=== PATIENT | male | born 1985 | race Caucasian/White ===

== ENCOUNTER 2025-01-22 10:05 | Inpatient (IN) | payer MEDICAID, OTHER ==
[~2025-01-22] VITALS: Ht 325.1 cm; Wt 68.7 kg
[2025-01-22 10:12] VITALS: O2SAT 98
[2025-01-22] MEDS ORDERED: ONDANSETRON HCL 4MG/2ML INJ IV ONE (11:00)
[2025-01-22] MEDS ORDERED: DIAZEPAM 5 MG/ML 2ML SYR IV ONE (11:00)
[2025-01-22] MEDS ORDERED: ACETAMINOPHEN 325MG TABLET PO ONE (11:00)
[2025-01-22] MEDS ORDERED: KETOROLAC 15MG/ML VIAL IV ONE (11:15)
[2025-01-22 11:16] LABS: BASOPHILS % 0.5 % (0.0-2.0); EOSINOPHILS % 2.2 % (0.0-5.0); HEMATOCRIT. 44.2 % (42.0-52.0); HEMOGLOBIN. 14.5 g/dL (14.0-18.0); LYMPHOCYTES % 22.4 % (20.0-50.0); MEAN PLATELET VOLUME 8.7 fl (7.4-10.4); MONOCYTES % 6.6 % (2.0-8.0); NEUTROPHILS % 68.3 % (40.0-76.0); PLATELET 298 x1000/uL (130-400); RED BLOOD CELL COUNT 4.71 mill/uL (4.7-6.1); RED CELL DISTRIBUTION WIDTH 14.5 % (11.6-14.6)
[2025-01-22] MEDS: LACTATED RINGERS 1,000 ML IV SCH (11:30)
[2025-01-22 11:37] LABS: CREATININE 0.9 mg/dL (0.6-1.3)
[2025-01-22 11:38] LABS: UREA NITROGEN BLOOD 6 mg/dL (9-23)
[2025-01-22 11:39] LABS: ASPARTATE AMINOTRANSFERASE 54 IU/L (<34)
[2025-01-22 11:40] LABS: BILIRUBIN DIRECT 0.2 mg/dL (<=3.0); BILIRUBIN TOTAL 0.6 mg/dL (0.1-1.0); PROTEIN TOTAL 7.7 g/dL (6.0-8.3)
[2025-01-22] MEDS: DIAZEPAM 5 MG/ML 2ML SYR IV NR (11:45)
[2025-01-22] MEDS: ONDANSETRON HCL 4MG/2ML INJ IV NR (11:45)
[2025-01-22] MEDS: KETOROLAC 15MG/ML VIAL IV NR (11:45)
[2025-01-22] MEDS ORDERED: IOHEXOL-300 100 ML BOTTLE ONE (12:56)
[2025-01-22] MEDS ORDERED: PIPERACILLIN/TAZO 3.375G/50ML 50 ML IV ONE ×3 (14:16→20:40)
[2025-01-22] MEDS: PIPERACILLIN/TAZO 3.375G/50ML 50 ML IV STA (14:18)
[2025-01-22] MEDS ORDERED: MAGNESIUM/ALUMINUM HYDROXIDE/SIMETHICONE 30ML UDC PO PRN (15:30)
[2025-01-22] MEDS ORDERED: CLONIDINE 0.1MG TABLET PO PRN (15:30)
[2025-01-22] MEDS ORDERED: ONDANSETRON HCL 4MG/2ML INJ IV PRN (15:30)
[2025-01-22] MEDS ORDERED: ACETAMINOPHEN 325MG TABLET PO PRN (15:30)
[2025-01-22] MEDS ORDERED: OLAN5TAB74 PO (15:52)
[2025-01-22] MEDS ORDERED: THIA100T88 PO (15:52)
[2025-01-22] MEDS ORDERED: BUSP15TA3 PO (15:52)
[2025-01-22] MEDS ORDERED: ONDA4TAB50 PO (15:52)
[2025-01-22] MEDS ORDERED: ARIP10TA86 PO (15:52)
[2025-01-22] MEDS ORDERED: PANT40TA51 PO (15:52)
[2025-01-22] MEDS ORDERED: GABA-534 PO (15:52)
[2025-01-22] MEDS ORDERED: HYDR-4001 PO (15:52)
[2025-01-22] MEDS ORDERED: NALT50TA6 PO (15:52)
[2025-01-22] MEDS ORDERED: HYDR-3992 PO (15:52)
[2025-01-22] MEDS ORDERED: ESCI-7 PO (15:52)
[2025-01-22 16:00] VITALS: BP 108/68; PULSE 64; RESP 17; TEMP 36.4; O2SAT 98
[2025-01-22] MEDS ORDERED: NALOXONE HCL 0.4MG/ML VIAL IV PRN (16:00)
[2025-01-22] MEDS: SODIUM CHLORIDE 0.9% 1,000 ML IV SCH (17:41)
[2025-01-22] MEDS: LORAZEPAM 2MG/ML UD SYRINGE IV PRN (18:25)
[2025-01-22 18:29] VITALS: BP 120/75; PULSE 77; RESP 18; TEMP 36.418
[2025-01-22 20:00] VITALS: BP 109/65; PULSE 61; RESP 16; TEMP 36.6
[2025-01-22] MEDS: ENOXAPARIN 40MG/0.4ML SYR SUBCUT SCH (20:49)
[2025-01-22] MEDS: ZOLPIDEM TARTRATE 5MG TABLET PO PRN (21:33)
[2025-01-22] MEDS: PIPERACILLIN/TAZO 3.375G/50ML 50 ML IV SCH (22:12)
[2025-01-23] VITALS: BP 110/66; PULSE 63; RESP 17; TEMP 36.4; O2SAT 99
[2025-01-23 04:00] VITALS: BP 104/65; PULSE 60; RESP 16; TEMP 36.6; O2SAT 99
[2025-01-23 08:00] VITALS: BP 109/63; PULSE 61; RESP 18; TEMP 36.7; O2SAT 98
[2025-01-23 08:55] LABS: BASOPHILS % 0.8 % (0.0-2.0); EOSINOPHILS % 4.9 % (0.0-5.0); HEMATOCRIT. 40.3 % (42.0-52.0); HEMOGLOBIN. 13.2 g/dL (14.0-18.0); LYMPHOCYTES % 32.2 % (20.0-50.0); MEAN PLATELET VOLUME 9.2 fl (7.4-10.4); MONOCYTES % 6.8 % (2.0-8.0); NEUTROPHILS % 55.3 % (40.0-76.0); PLATELET 235 x1000/uL (130-400); RED BLOOD CELL COUNT 4.26 mill/uL (4.7-6.1); RED CELL DISTRIBUTION WIDTH 14.2 % (11.6-14.6)
[2025-01-23] MEDS: PANTOPRAZOLE SODIUM 40 MG/VIAL IV SCH (09:17)
[2025-01-23 09:19] LABS: CREATININE 0.8 mg/dL (0.6-1.3); UREA NITROGEN BLOOD < 5 mg/dL (9-23)
[2025-01-23 12:00] VITALS: BP 102/63; PULSE 63; RESP 18; TEMP 36.7
[2025-01-23] MEDS ORDERED: NON FORMULARY MED XX SCH (16:45)
[2025-01-23] MEDS: ARIPIPRAZOLE 5MG TABLET PO SCH (17:10)
[2025-01-23] MEDS: CITALOPRAM HYDROBROMIDE 10MG TABLET PO SCH (17:10)
[2025-01-23 18:25] VITALS: BP 106/59; PULSE 69; RESP 18; TEMP 36.6; O2SAT 98
[2025-01-23 20:00] VITALS: BP 107/62; PULSE 69; RESP 20; TEMP 36.6; O2SAT 97
[2025-01-23] MEDS: BUSPIRONE HCL 10MG TABLET PO SCH (20:16)
[2025-01-24] VITALS: BP 138/63; PULSE 79; RESP 18; TEMP 36.6; O2SAT 97
[2025-01-24] MEDS: HYDROCODONE/ACETAMINOPHEN 5/325MG TABLET PO PRN (03:42)
[2025-01-24] MEDS: OLANZAPINE 5MG TABLET PO SCH (03:42)
[2025-01-24 04:00] VITALS: BP 102/51; PULSE 55; RESP 20; TEMP 36.4; O2SAT 96
[2025-01-24 05:20] VITALS: PULSE 65; RESP 19; O2SAT 97
[2025-01-24 07:20] LABS: BASOPHILS % 0.9 % (0.0-2.0); EOSINOPHILS % 4.6 % (0.0-5.0); HEMATOCRIT. 38.9 % (42.0-52.0); HEMOGLOBIN. 12.8 g/dL (14.0-18.0); LYMPHOCYTES % 31.8 % (20.0-50.0); MEAN PLATELET VOLUME 9.1 fl (7.4-10.4); MONOCYTES % 7.5 % (2.0-8.0); NEUTROPHILS % 55.2 % (40.0-76.0); PLATELET 218 x1000/uL (130-400); RED BLOOD CELL COUNT 4.13 mill/uL (4.7-6.1); RED CELL DISTRIBUTION WIDTH 14.3 % (11.6-14.6)
[2025-01-24 07:36] LABS: CREATININE 0.8 mg/dL (0.6-1.3); UREA NITROGEN BLOOD 6 mg/dL (9-23)
[2025-01-24 08:00] VITALS: BP 105/57; PULSE 63; RESP 18; TEMP 36.5; O2SAT 97
[2025-01-24] MEDS ORDERED: CITALOPRAM HYDROBROMIDE 10MG TABLET PO SCH (09:00)
[2025-01-24] MEDS ORDERED: BUSPIRONE HCL 10MG TABLET PO SCH (09:00)
[2025-01-24] MEDS ORDERED: ARIPIPRAZOLE 5MG TABLET PO SCH (09:00)
[2025-01-24] MEDS: THIAMINE HCL 100MG TABLET PO SCH (09:16)
[2025-01-24] MEDS: METHIMAZOLE 5MG TABLET PO SCH (09:16)
[2025-01-24] MEDS: GABAPENTIN 400MG CAPSULE PO SCH (09:17)
[2025-01-24] MEDS ORDERED: LORA-249 MT (09:39)
[2025-01-24 12:00] VITALS: BP 110/71; PULSE 90; RESP 18; TEMP 36.6; O2SAT 98
[2025-01-24] MEDS ORDERED: BUSP10TA4 PO (14:16)
[2025-01-24] MEDS ORDERED: ABIL5 PO (14:16)
[2025-01-24] MEDS ORDERED: OLAN5TAB74 MT (14:16)
[2025-01-24] MEDS ORDERED: CITA10TA16 PO (14:16)
[2025-01-24] MEDS ORDERED: METH-371 PO (14:16)
[2025-01-24 14:27] VITALS: BP 110/71; PULSE 90; RESP 18; TEMP 97.7
== END 2025-01-24 14:50 | disposition home or self-care (01) | DRG 776 ==
LOC: ER 10:05 → 8WST 12:51 → ENRESERV 13:14
PROVIDERS: ADMIT Internal Medicine; ATTEND Internal Medicine
DX: F13.939 Sedative, hypnotic or anxiolytic use, unspecified with withdrawal, unspecified (principal); F31.9 Bipolar disorder, unspecified; F41.9 Anxiety disorder, unspecified; K76.9 Liver disease, unspecified; Z90.49 Acquired absence of other specified parts of digestive tract; R94.6 Abnormal results of thyroid function studies
CPT/HCPCS: 36415; 74177; 80048; 80076; 84443; 85025; 93970; 96361; 96374; 96375; 99291; J1650; J2060; J2470; J2543; J7030; Q9967

== ENCOUNTER 2025-03-06 16:59 | Emergency (ER) | payer MEDICAID ==
[~2025-03-06] VITALS: Ht 175.3 cm; Wt 72.0 kg
[~2025-03-06 16:59] MED LIST: ABIL5 PO; ARIP10TA86 PO; BUSP10TA4 PO; BUSP15TA3 PO; CITA10TA16 PO; ESCI-7 PO; GABA-534 PO; HYDR-3992 PO; LORA-249 MT; METH-371 PO; NALT50TA6 PO; OLAN5TAB74 MT; OLAN5TAB74 PO; PANT40TA51 PO; THIA100T88 PO
[2025-03-06 17:02] VITALS: O2SAT 98
[2025-03-06] MEDS: LORAZEPAM 1MG TABLET PO ONE (17:23)
[2025-03-06 18:20] LABS: *AMPHETAMINES SCREEN URINE NEGATIVE (NEGATIVE)
[2025-03-06 18:21] LABS: *BARBITURATES SCREEN URINE NEGATIVE (NEGATIVE); *BENZODIAZEPINES SCREEN URINE NEGATIVE (NEGATIVE); *COCAINE SCREEN URINE NEGATIVE (NEGATIVE); CANNABINOID URINE SCREEN PRESUMPTIVE POSITIVE (NEGATIVE); ECSTASY MDMA SCREEN URINE NEGATIVE (NEGATIVE); METHADONE URINE SCREEN NEGATIVE (NEGATIVE); OPIATES URINE SCREEN NEGATIVE (NEGATIVE); PHENCYCLIDINE URINE SCREEN NEGATIVE (NEGATIVE)
[2025-03-06 21:14] LABS: BASOPHILS % 0.8 % (0.0-2.0); EOSINOPHILS % 5.2 % (0.0-5.0); HEMATOCRIT. 42.3 % (42.0-52.0); HEMOGLOBIN. 13.9 g/dL (14.0-18.0); LYMPHOCYTES % 55.5 % (20.0-50.0); MEAN PLATELET VOLUME 8.5 fl (7.4-10.4); MONOCYTES % 5.7 % (2.0-8.0); NEUTROPHILS % 32.8 % (40.0-76.0); PLATELET 182 x1000/uL (130-400); RED BLOOD CELL COUNT 4.64 mill/uL (4.7-6.1); RED CELL DISTRIBUTION WIDTH 15.0 % (11.6-14.6)
[2025-03-06 21:29] LABS: UREA NITROGEN BLOOD 7 mg/dL (9-23)
[2025-03-06 21:30] LABS: CREATININE 0.9 mg/dL (0.6-1.3)
[2025-03-06 21:32] LABS: ASPARTATE AMINOTRANSFERASE 34 IU/L (<34); BILIRUBIN DIRECT 0.1 mg/dL (<=3.0)
[2025-03-06 21:33] LABS: BILIRUBIN TOTAL 0.3 mg/dL (0.1-1.0); PROTEIN TOTAL 6.3 g/dL (6.0-8.3)
[2025-03-07 12:00] VITALS: BP 136/82; PULSE 81; RESP 16; TEMP 36.7; O2SAT 97
[2025-03-29] MEDS ORDERED: FOLI-43 PO (10:16)
[2025-03-29] MEDS ORDERED: CHLO25CA11 MT (10:16)
[2025-03-29] MEDS ORDERED: THIA100T88 PO (10:16)
[2025-03-29] MEDS ORDERED: MULT-379 MT (10:16)
[2025-03-29] MEDS ORDERED: LORA-249 MT (10:16)
== END 2025-03-07 12:05 ==
LOC: ER 16:59
DX: R45.851 Suicidal ideations (principal); F15.90 Other stimulant use, unspecified, uncomplicated; F10.229 Alcohol dependence with intoxication, unspecified; F12.10 Cannabis abuse, uncomplicated; F25.9 Schizoaffective disorder, unspecified; F31.9 Bipolar disorder, unspecified; F41.9 Anxiety disorder, unspecified; Z79.899 Other long term (current) drug therapy; Z91.148 Patient's other noncompliance with medication regimen for other reason; Z20.822 Contact with and (suspected) exposure to COVID-19; Y90.8 Blood alcohol level of 240 mg/100 ml or more
CPT/HCPCS: 36415; 80048; 80076; 80305; 80307; 80320; 80329; 83735; 85025; 87426; 99285; G0480

== ENCOUNTER 2025-04-16 19:21 | Emergency (ER) | payer MEDICAID ==
[~2025-04-16] VITALS: Ht 182.9 cm; Wt 75.0 kg
[~2025-04-16 19:21] MED LIST changes: -ARIP10TA86 PO; -BUSP10TA4 PO; +CHLO25CA11 MT; -ESCI-7 PO; +FOLI-43 PO; +MULT-379 MT; -OLAN5TAB74 PO
[2025-04-16 19:35] VITALS: TEMP 98.6; O2SAT 98
[2025-04-16 20:47] LABS: BASOPHILS % 0.9 % (0.0-2.0); EOSINOPHILS % 5.5 % (0.0-5.0); HEMATOCRIT. 41.7 % (42.0-52.0); HEMOGLOBIN. 13.9 g/dL (14.0-18.0); LYMPHOCYTES % 33.9 % (20.0-50.0); MEAN PLATELET VOLUME 8.0 fl (7.4-10.4); MONOCYTES % 7.1 % (2.0-8.0); NEUTROPHILS % 52.6 % (40.0-76.0); PLATELET 145 x1000/uL (130-400); RED BLOOD CELL COUNT 4.59 mill/uL (4.7-6.1); RED CELL DISTRIBUTION WIDTH 15.0 % (11.6-14.6)
[2025-04-16 21:02] LABS: CREATININE 0.8 mg/dL (0.6-1.3); UREA NITROGEN BLOOD 7 mg/dL (9-23)
[2025-04-16] MEDS: SODIUM CHLORIDE 0.9% 1,000 ML IV ONE (21:04)
[2025-04-16 21:16] LABS: ETHANOL BLOOD 363 mg/dL (<10)
[2025-04-17 01:09] VITALS: BP 121/79; PULSE 98; RESP 18; O2SAT 100
== END 2025-04-17 01:11 | disposition home or self-care (01) ==
LOC: ER 19:21
DX: F10.129 Alcohol abuse with intoxication, unspecified (principal); Z79.899 Other long term (current) drug therapy; Y90.8 Blood alcohol level of 240 mg/100 ml or more
CPT/HCPCS: 80048; 80320; 85025; 36415; 96360; 99283; J7030; G0480

== ENCOUNTER 2025-04-17 02:10 | Emergency (ER) | payer MEDICAID ==
[~2025-04-17] VITALS: Ht 175.3 cm; Wt 77.0 kg
[2025-04-17 02:25] VITALS: TEMP 97.7; O2SAT 96
[2025-04-17 03:32] LABS: CLARITY URINE CLEAR (CLEAR); COLOR URINE YELLOW (YELLOW); GLUCOSE URINE NEGATIVE (NEGATIVE); KETONES URINE TRACE (NEGATIVE); LEUKOCYTE ESTERASE URINE NEGATIVE (NEGATIVE); NITRITE URINE NEGATIVE (NEGATIVE); OCCULT BLOOD URINE NEGATIVE (NEGATIVE); PH URINE 5.5 (4.5-8.0); PROTEIN URINE 1+ (NEGATIVE); SPECIFIC GRAVITY URINE 1.017 (1.005-1.030); UROBILINOGEN URINE 1.0 E.U./dL (0.2-1.0)
[2025-04-17 03:47] LABS: *AMPHETAMINES SCREEN URINE NEGATIVE (NEGATIVE); *BARBITURATES SCREEN URINE PRESUMPTIVE POSITIVE (NEGATIVE); *BENZODIAZEPINES SCREEN URINE NEGATIVE (NEGATIVE); *COCAINE SCREEN URINE PRESUMPTIVE POSITIVE (NEGATIVE); CANNABINOID URINE SCREEN NEGATIVE (NEGATIVE); ECSTASY MDMA SCREEN URINE NEGATIVE (NEGATIVE); METHADONE URINE SCREEN NEGATIVE (NEGATIVE); OPIATES URINE SCREEN NEGATIVE (NEGATIVE); PHENCYCLIDINE URINE SCREEN NEGATIVE (NEGATIVE)
[2025-04-17 04:04] LABS: BASOPHILS % 0.3 % (0.0-2.0); EOSINOPHILS % 4.0 % (0.0-5.0); HEMATOCRIT. 40.5 % (42.0-52.0); HEMOGLOBIN. 13.2 g/dL (14.0-18.0); LYMPHOCYTES % 20.2 % (20.0-50.0); MEAN PLATELET VOLUME 8.1 fl (7.4-10.4); MONOCYTES % 7.7 % (2.0-8.0); NEUTROPHILS % 67.8 % (40.0-76.0); PLATELET 132 x1000/uL (130-400); RED BLOOD CELL COUNT 4.42 mill/uL (4.7-6.1); RED CELL DISTRIBUTION WIDTH 15.3 % (11.6-14.6)
[2025-04-17 04:18] LABS: CREATININE 0.9 mg/dL (0.6-1.3)
[2025-04-17 04:19] LABS: ETHANOL BLOOD 166 mg/dL (<10); PROTEIN TOTAL 5.8 g/dL (6.0-8.3); UREA NITROGEN BLOOD 9 mg/dL (9-23)
[2025-04-17 04:20] LABS: ASPARTATE AMINOTRANSFERASE 33 IU/L (<34)
[2025-04-17 04:21] LABS: BILIRUBIN DIRECT 0.1 mg/dL (<=3.0); BILIRUBIN TOTAL 0.3 mg/dL (0.1-1.0)
[2025-04-17 05:27] LABS: RBC URINE 0-2 /hpf (0-2); SQUAMOUS EPITHELIAL CELL URINE FEW /lpf (RARE/1+); WBC URINE 0-2 /hpf (0-2)
[2025-04-17 05:30] LABS: BACTERIA URINE NONE SEEN
[2025-04-17] MEDS: LORAZEPAM 1MG TABLET PO ONE (09:30)
[2025-04-17] MEDS: ONDANSETRON 4MG ODT PO ONE (09:30)
[2025-04-17 12:12] VITALS: BP 123/82; PULSE 95; RESP 18; O2SAT 98
== END 2025-04-17 12:15 | disposition home or self-care (01) ==
LOC: ER 02:10
DX: R45.851 Suicidal ideations (principal); F31.9 Bipolar disorder, unspecified; F19.10 Other psychoactive substance abuse, uncomplicated; F41.9 Anxiety disorder, unspecified; Z79.899 Other long term (current) drug therapy; Z20.822 Contact with and (suspected) exposure to COVID-19
CPT/HCPCS: 80076; 80305; 80048; 81003; 80320; 83735; 85025; 36415; 93005; 99284; 87426; Q0162; G0480

== ENCOUNTER 2025-04-17 15:33 | Emergency (ER) | payer MEDICAID ==
[~2025-04-17] VITALS: Ht 170.2 cm; Wt 68.0 kg
[2025-04-17 15:35] VITALS: TEMP 98.3; O2SAT 99
[2025-04-17 17:13] LABS: BASOPHILS % 0.4 % (0.0-2.0); EOSINOPHILS % 1.6 % (0.0-5.0); HEMATOCRIT. 45.6 % (42.0-52.0); HEMOGLOBIN. 15.2 g/dL (14.0-18.0); LYMPHOCYTES % 25.0 % (20.0-50.0); MEAN PLATELET VOLUME 8.5 fl (7.4-10.4); MONOCYTES % 6.4 % (2.0-8.0); NEUTROPHILS % 66.6 % (40.0-76.0); PLATELET 123 x1000/uL (130-400); RED BLOOD CELL COUNT 4.99 mill/uL (4.7-6.1); RED CELL DISTRIBUTION WIDTH 14.9 % (11.6-14.6)
[2025-04-17 17:31] LABS: CREATININE 0.8 mg/dL (0.6-1.3); UREA NITROGEN BLOOD 7 mg/dL (9-23)
[2025-04-17 17:32] LABS: PROTEIN TOTAL 6.4 g/dL (6.0-8.3)
[2025-04-17 17:33] LABS: ASPARTATE AMINOTRANSFERASE 37 IU/L (<34)
[2025-04-17 17:34] LABS: BILIRUBIN DIRECT 0.1 mg/dL (<=3.0); BILIRUBIN TOTAL 0.3 mg/dL (0.1-1.0)
[2025-04-17 17:51] LABS: ETHANOL BLOOD 340 mg/dL (<10)
[2025-04-17 23:09] VITALS: BP 122/80; PULSE 104; RESP 18; O2SAT 96
== END 2025-04-17 23:11 | disposition home or self-care (01) ==
LOC: ER 15:33
DX: T51.0X1A Toxic effect of ethanol, accidental (unintentional), initial encounter (principal); F10.20 Alcohol dependence, uncomplicated; F31.9 Bipolar disorder, unspecified; F14.90 Cocaine use, unspecified, uncomplicated; F15.90 Other stimulant use, unspecified, uncomplicated; G92.9 Unspecified toxic encephalopathy; G31.2 Degeneration of nervous system due to alcohol; R51.9 Headache, unspecified; Z79.899 Other long term (current) drug therapy; Y90.8 Blood alcohol level of 240 mg/100 ml or more
CPT/HCPCS: 36415; 80048; 80076; 80320; 85025; 99284; G0480

== ENCOUNTER 2025-04-18 10:12 | Emergency (ER) | payer MEDICAID ==
[~2025-04-18] VITALS: Ht 175.3 cm; Wt 68.0 kg
[2025-04-18 10:15] VITALS: O2SAT 98
[2025-04-18 11:12] LABS: BASOPHILS % 0.3 % (0.0-2.0); EOSINOPHILS % 0.1 % (0.0-5.0); HEMATOCRIT. 41.0 % (42.0-52.0); HEMOGLOBIN. 13.9 g/dL (14.0-18.0); LYMPHOCYTES % 27.4 % (20.0-50.0); MEAN PLATELET VOLUME 7.5 fl (7.4-10.4); MONOCYTES % 6.3 % (2.0-8.0); NEUTROPHILS % 65.9 % (40.0-76.0); PLATELET 187 x1000/uL (130-400); RED BLOOD CELL COUNT 4.55 mill/uL (4.7-6.1); RED CELL DISTRIBUTION WIDTH 15.0 % (11.6-14.6)
[2025-04-18 11:24] LABS: INR 1.0
[2025-04-18 11:33] LABS: CREATININE 0.8 mg/dL (0.6-1.3); UREA NITROGEN BLOOD 7 mg/dL (9-23)
[2025-04-18 11:34] LABS: PROTEIN TOTAL 6.3 g/dL (6.0-8.3)
[2025-04-18 11:35] LABS: ASPARTATE AMINOTRANSFERASE 41 IU/L (<34); BILIRUBIN DIRECT 0.1 mg/dL (<=3.0); BILIRUBIN TOTAL 0.3 mg/dL (0.1-1.0)
[2025-04-18 14:50] VITALS: BP 122/76; PULSE 85; RESP 16; TEMP 36.8; O2SAT 99
== END 2025-04-18 15:00 | disposition home or self-care (01) ==
LOC: ER 10:12 → CANBEDREQ 11:58 → ER 15:00
DX: S00.91XA Abrasion of unspecified part of head, initial encounter (principal); F10.229 Alcohol dependence with intoxication, unspecified; F31.9 Bipolar disorder, unspecified; Z79.899 Other long term (current) drug therapy; Z79.01 Long term (current) use of anticoagulants; X58.XXXA Exposure to other specified factors, initial encounter; Y93.89 Activity, other specified; Y92.89 Other specified places as the place of occurrence of the external cause; Y99.8 Other external cause status; Y90.9 Presence of alcohol in blood, level not specified
CPT/HCPCS: 36415; 80048; 80076; 83735; 85025; 99284

== ENCOUNTER 2025-04-18 18:38 | Emergency (ER) | payer MEDICAID ==
[~2025-04-18] VITALS: Ht 180.3 cm; Wt 64.0 kg
[2025-04-18 18:41] VITALS: O2SAT 98
[2025-04-18 19:52] LABS: BASOPHILS % 0.3 % (0.0-2.0); EOSINOPHILS % 1.1 % (0.0-5.0); HEMATOCRIT. 42.8 % (42.0-52.0); HEMOGLOBIN. 13.7 g/dL (14.0-18.0); LYMPHOCYTES % 35.7 % (20.0-50.0); MEAN PLATELET VOLUME 7.8 fl (7.4-10.4); MONOCYTES % 7.5 % (2.0-8.0); NEUTROPHILS % 55.4 % (40.0-76.0); PLATELET 208 x1000/uL (130-400); RED BLOOD CELL COUNT 4.63 mill/uL (4.7-6.1); RED CELL DISTRIBUTION WIDTH 15.7 % (11.6-14.6)
[2025-04-18 20:01] LABS: CREATININE 0.7 mg/dL (0.6-1.3); UREA NITROGEN BLOOD 9 mg/dL (9-23)
[2025-04-18] MEDS: SODIUM CHLORIDE 0.9% 1,000 ML IV ONE (20:05)
[2025-04-18] MEDS: ONDANSETRON HCL 4MG/2ML INJ IV ONE (20:41)
[2025-04-18] MEDS: KETOROLAC 15MG/ML VIAL IV ONE (20:41)
[2025-04-18 20:46] LABS: ETHANOL BLOOD 390 mg/dL (<10)
[2025-04-18 21:01] LABS: *AMPHETAMINES SCREEN URINE NEGATIVE (NEGATIVE); *BARBITURATES SCREEN URINE PRESUMPTIVE POSITIVE (NEGATIVE); *BENZODIAZEPINES SCREEN URINE NEGATIVE (NEGATIVE); *COCAINE SCREEN URINE NEGATIVE (NEGATIVE); CANNABINOID URINE SCREEN NEGATIVE (NEGATIVE); ECSTASY MDMA SCREEN URINE NEGATIVE (NEGATIVE); METHADONE URINE SCREEN NEGATIVE (NEGATIVE); OPIATES URINE SCREEN NEGATIVE (NEGATIVE); PHENCYCLIDINE URINE SCREEN NEGATIVE (NEGATIVE)
[2025-04-18 22:40] VITALS: BP 113/60; PULSE 103; RESP 17; TEMP 37.1; O2SAT 98
== END 2025-04-18 22:46 | disposition home or self-care (01) ==
LOC: ER 18:38
DX: F10.229 Alcohol dependence with intoxication, unspecified (principal); F31.9 Bipolar disorder, unspecified; R51.9 Headache, unspecified; Z79.899 Other long term (current) drug therapy; Y90.8 Blood alcohol level of 240 mg/100 ml or more
CPT/HCPCS: 80305; 80048; 80320; 85025; 36415; 70450; 96361; 96374; 96375; 99285; J1885; J2405; J7030; Z7610; G0480

== ENCOUNTER 2025-05-02 16:23 | Emergency (ER) | payer MEDICAID ==
[~2025-05-02] VITALS: Ht 172.7 cm; Wt 68.0 kg
[2025-05-02 16:25] VITALS: O2SAT 99
[2025-05-02 18:03] LABS: BASOPHILS % 1.0 % (0.0-2.0); EOSINOPHILS % 2.8 % (0.0-5.0); HEMATOCRIT. 42.4 % (42.0-52.0); HEMOGLOBIN. 14.3 g/dL (14.0-18.0); LYMPHOCYTES % 36.8 % (20.0-50.0); MEAN PLATELET VOLUME 7.7 fl (7.4-10.4); MONOCYTES % 4.1 % (2.0-8.0); NEUTROPHILS % 55.3 % (40.0-76.0); PLATELET 219 x1000/uL (130-400); RED BLOOD CELL COUNT 4.66 mill/uL (4.7-6.1); RED CELL DISTRIBUTION WIDTH 15.2 % (11.6-14.6)
[2025-05-02 18:16] LABS: CREATININE 0.6 mg/dL (0.6-1.3)
[2025-05-02 18:17] LABS: UREA NITROGEN BLOOD 5 mg/dL (9-23)
[2025-05-02 18:29] LABS: ETHANOL BLOOD 408 mg/dL (<10)
[2025-05-02] MEDS: SODIUM CHLORIDE 0.9% 1,000 ML IV ONE (20:00)
[2025-05-03 04:02] VITALS: BP 105/77; PULSE 62; RESP 16; TEMP 36.7; O2SAT 100
== END 2025-05-03 04:05 | disposition home or self-care (01) ==
LOC: ER 16:23
DX: F10.229 Alcohol dependence with intoxication, unspecified (principal); F31.9 Bipolar disorder, unspecified; F14.90 Cocaine use, unspecified, uncomplicated; Z79.899 Other long term (current) drug therapy; Y90.9 Presence of alcohol in blood, level not specified
CPT/HCPCS: 80048; 80307; 80329; 80320; 85025; 36415; 99285; J7030; G0480

== ENCOUNTER 2025-05-03 04:08 | Emergency (ER) | payer MEDICAID ==
[~2025-05-03] VITALS: Ht 172.7 cm; Wt 68.0 kg
[2025-05-03 04:26] VITALS: O2SAT 99
[2025-05-03 05:23] LABS: BASOPHILS % 0.7 % (0.0-2.0); EOSINOPHILS % 3.6 % (0.0-5.0); HEMATOCRIT. 41.9 % (42.0-52.0); HEMOGLOBIN. 14.0 g/dL (14.0-18.0); LYMPHOCYTES % 33.3 % (20.0-50.0); MEAN PLATELET VOLUME 7.5 fl (7.4-10.4); MONOCYTES % 4.0 % (2.0-8.0); NEUTROPHILS % 58.4 % (40.0-76.0); PLATELET 210 x1000/uL (130-400); RED BLOOD CELL COUNT 4.63 mill/uL (4.7-6.1); RED CELL DISTRIBUTION WIDTH 15.2 % (11.6-14.6)
[2025-05-03 05:31] LABS: CLARITY URINE CLEAR (CLEAR); COLOR URINE YELLOW (YELLOW); GLUCOSE URINE NEGATIVE (NEGATIVE); KETONES URINE NEGATIVE (NEGATIVE); LEUKOCYTE ESTERASE URINE NEGATIVE (NEGATIVE); NITRITE URINE NEGATIVE (NEGATIVE); OCCULT BLOOD URINE NEGATIVE (NEGATIVE); PH URINE 6.5 (4.5-8.0); PROTEIN URINE NEGATIVE (NEGATIVE); SPECIFIC GRAVITY URINE 1.021 (1.005-1.030); UROBILINOGEN URINE 1.0 E.U./dL (0.2-1.0)
[2025-05-03 05:37] LABS: CREATININE 0.7 mg/dL (0.6-1.3); ETHANOL BLOOD 198 mg/dL (<10); UREA NITROGEN BLOOD 8 mg/dL (9-23)
[2025-05-03 05:58] LABS: *AMPHETAMINES SCREEN URINE NEGATIVE (NEGATIVE)
[2025-05-03 05:59] LABS: *BARBITURATES SCREEN URINE PRESUMPTIVE POSITIVE (NEGATIVE); *BENZODIAZEPINES SCREEN URINE NEGATIVE (NEGATIVE); *COCAINE SCREEN URINE PRESUMPTIVE POSITIVE (NEGATIVE); CANNABINOID URINE SCREEN NEGATIVE (NEGATIVE); ECSTASY MDMA SCREEN URINE NEGATIVE (NEGATIVE); METHADONE URINE SCREEN NEGATIVE (NEGATIVE); OPIATES URINE SCREEN NEGATIVE (NEGATIVE); PHENCYCLIDINE URINE SCREEN NEGATIVE (NEGATIVE)
[2025-05-03] MEDS: ACETAMINOPHEN 325MG TABLET PO ONE (08:30)
[2025-05-03] MEDS ORDERED: HYDROXYZINE 25MG TABLET PO PRN (10:30)
[2025-05-03] MEDS: IBUPROFEN 800MG TABLET PO SCH (10:30)
[2025-05-03] MEDS: CITALOPRAM HYDROBROMIDE 10MG TABLET PO SCH (10:30)
[2025-05-03] MEDS: CHLORDIAZEPOXIDE 25MG CAPSULE PO SCH (10:30)
[2025-05-03] MEDS: BUSPIRONE HCL 5MG TABLET PO SCH (11:00)
[2025-05-03] MEDS: GABAPENTIN SOLN 300MG/6ML UDC PO SCH (13:00)
[2025-05-03 15:28] VITALS: BP 137/81; PULSE 83; RESP 18; TEMP 37.1; O2SAT 100
[2025-05-03] MEDS ORDERED: OLANZAPINE 5MG TABLET ODT PO SCH (21:00)
== END 2025-05-03 15:45 ==
LOC: ER 04:08
DX: R45.851 Suicidal ideations (principal); F17.200 Nicotine dependence, unspecified, uncomplicated; F31.9 Bipolar disorder, unspecified; K74.60 Unspecified cirrhosis of liver; F14.90 Cocaine use, unspecified, uncomplicated; F15.90 Other stimulant use, unspecified, uncomplicated; F10.90 Alcohol use, unspecified, uncomplicated; Z20.822 Contact with and (suspected) exposure to COVID-19; Z79.899 Other long term (current) drug therapy; Y90.9 Presence of alcohol in blood, level not specified
CPT/HCPCS: 36415; 80048; 80305; 80307; 80320; 80329; 81003; 85025; 87426; 93005; 99285; G0480